=== PATIENT | female | born 1955 | race African-American/Black ===

== ENCOUNTER 2016-06-25 10:55 | Emergency (ER) | payer MEDICAID ==
[~2016-06-25] VITALS: Wt 100.0 kg
--- NOTE | 2016-06-25 12:31 | ERA ---
ER Documentation Chief Complaint Date/Time DATE: 06/25/16 TIME: 12:30 Chief Complaint dysuria for the past few days. no hematuria per pt HPI The patient is a 61-year-old female, presenting to the ER because of painful urination for the last 2 days. She has similar symptoms previously, denies fever, chills, neck pain, chest pain, palpitation, dyspnea, abdominal pain, vomiting, diarrhea, constipation. She has minimal lower back pain. She smokes and drinks socially Past medical history/surgical history: ROS All systems reviewed and are negative except as per history of present illness. Medications Home Meds Active Scripts Phenazopyridine Hcl* (Phenazopyridine Hcl*) 200 Mg Tablet, 200 MG PO TID for 3 Days, TAB Prov:CHICHI PELLETIER MD 06/25/16 Sulfamethoxazole-Trimethoprim* (Bactrim* DS) 800-160 Mg Tab, 1 TAB PO BID for 7 Days, TAB Prov:CHICHI PELLETIER MD 06/25/16 Physical Exam Vitals Vital Signs Date Time Temp Pulse Resp B/P Pulse Ox O2 Delivery O2 Flow Rate FiO2 06/25/16 11:03 97.7 97 20 103/69 98 Physical Exam Const: No acute distress. Head: Atraumatic. Eyes: Normal Conjunctiva. ENT: Normal External Ears, Nose and Mouth. Neck: Full range of motion. No meningismus. Resp: Clear to auscultation bilaterally. Cardio: Regular rate and rhythm, no murmurs. Abd: Soft, non distended, normal bowel sounds, non tender. No CVA tenderness Skin: No petechiae or rashes. Back: No midline or flank tenderness. Ext: No cyanosis, or edema. Neur: Awake and alert. No focal deficit Psych: Normal Mood and Affect. Results 24 hrs Laboratory Tests Test 06/25/16 12:40 Bedside Urine Blood 3+ Bedside Urine Glucose (UA) Negative Bedside Urine Ketones (LAB) Negative Bedside Urine Leukocyte Esterase (L 2+ Bedside Urine Nitrite (LAB) Negative Bedside Urine Protein (LAB) 1+ Bedside Urine pH (LAB) 6.0 Current Medications Medications (Trade) Dose Ordered Sig/Jennie Route PRN Reason Start Time Stop Time Status Last Admin Dose Admin Trimethoprim/ Sulfamethoxazole (Bactrim (Ds)) 1 tab ONCE ONCE PO 06/25/16 13:00 06/25/16 13:01 06/25/16 12:51 Phenazopyridine HCl (Pyridium) 200 mg ONCE ONCE PO 06/25/16 13:00 06/25/16 13:01 06/25/16 12:50 Procedures/MDM MEDICAL MAKING DECISION: The patient is a 61-year-old female, presenting to the ER because of acute UTI. He was treated with Bactrim DS and Pyridium in the ER with good response. The differential diagnoses considered include but are not limited to cholelithiasis, cholecystitis, cystitis, pancreatitis, hepatitis, gastritis, peptic ulcer disease, gastric ulcer, appendicitis, diverticulitis, cholangitis, choledocholithiasis, partial small bowel obstruction. Departure Diagnosis: Primary Impression: UTI (urinary tract infection) Condition: Good Additional Instructions: She was discharge with Bactrim DS and Pyridium I discussed the findings with the patient. I advised the patient to follow-up with the primary physician in about 1-2 days, sooner if needed and return if any concern. CHICHI PELLETIER MD Jun 25, 2016 12:30
[2016-06-25 12:39] LABS: URINE BLOOD (Dip) POC 3+ (NEGATIVE)
[2016-06-25] MEDS ORDERED: BACTDS PO (12:44)
[2016-06-25] MEDS ORDERED: PHEN-616 PO (12:44)
[2016-06-25] MEDS ORDERED: TRIMETHOPRIM/SULFAMETHOX (DS) TAB PO ONE (13:00)
[2016-06-25] MEDS ORDERED: PHENAZOPYRIDINE 100 MG TAB PO ONE (13:00)
[2016-06-25 13:08] VITALS: TEMP 97.9
== END 2016-06-25 13:10 | disposition home or self-care (01) ==
LOC: FTE 10:55
DX: N39.0 Urinary tract infection, site not specified (principal)
CPT/HCPCS: 81003; Z7502; Z7610; 99283